=== PATIENT | female | born 2000 | race Caucasian/White ===

== ENCOUNTER → 2023-06-28 | Outpatient (CLI) | payer BC ==
[~2023-06-28] VITALS: Ht 170.2 cm; Wt 93.9 kg
[~2023-06-28] MED LIST: CLARITIN 1010 MG/TAB PO; DIFLUCAN 100MG100 MG PO; FLONASEALLERGY NS; LAMICTAL 25MG T25 MG PO; MELATONIN3 M1 PO; NYSTATIN OR100 MU/ML PO; PROAIR HFA0.09 MG/AC IH; PROTONIX 40MG T40 MG PO; TAPAZOLE5 MG PO; WIXELA 500-501 EACH IH
[2023-06-28 09:04] VITALS: BP 115/77; PULSE 74; TEMP 98.1
--- NOTE | 2023-06-28 10:15 | NUR ---
Dr Slade talks with pt. No nodule noted. Pts procedure canceled. Pt back to holding area and pt gets dressed. Pt out to car with mother.
== END ==
LOC: COL.RAD 08:35
DX: E04.1 Nontoxic single thyroid nodule (principal)